=== PATIENT | female | born 1990 | race Caucasian/White ===

== ENCOUNTER 2017-06-26 10:03 | Emergency (ER) | payer MEDICAID, OTHER ==
[~2017-06-26] VITALS: Ht 165.1 cm; Wt 63.0 kg
[~2017-06-26 10:03] MED LIST: NAPR-260 PO; PREN-39 PO
[2017-06-26 10:08] VITALS: Ht 165.1 cm; Wt 63.0 kg
[2017-06-26] MEDS ORDERED: SOD CHLORIDE 0.9% 1,000 ML IV ONE (13:00)
[2017-06-26] MEDS ORDERED: CLINDAMYCIN 300 MG INJ IV ONE ×2 (13:00→13:30)
[2017-06-26] MEDS ORDERED: CLINDAMYCIN 600 MG/D5W (PMX) 50 ML IVPB SCH (13:30)
--- NOTE | 2017-06-26 13:41 | ERA ---
ER Documentation Chief Complaint Date/Time DATE: 06/26/17 TIME: 13:36 Chief Complaint FOOT FUNGUS AND LEG RASH WITH SWELLING HPI Patient presents with a chief complaint of rash. Denies any pruritus. States that she went to all of you and treated with terbinafine 250 mg 3 weeks ago. Symptoms not resolved. Became painful. Went to an urgent care clinic 2 weeks ago and was prescribed Bactrim and ketoconazole. Patient has completed treatment and the lesions have not resolved. Denies any fever, chills, rashes in other areas of the body, vaginal discharge, cough, shortness of breath, chest pain, discharge from site of rash. Patient has a difficult time walking secondary to pain. No recent travel. Vaccination status up-to-date. Patient states that she is otherwise well, has no other complaints and describes no other associated manifestations. ROS All systems reviewed and are negative except as per history of present illness. Medications Home Meds Active Scripts Clindamycin Hcl* (Clindamycin Hcl*) 300 Mg Capsule, 300 MG PO TID for 10 Days, CAP Prov:JESUS ENRIQUEZ PA-C 06/26/17 Naproxen* (Naprosyn*) 500 Mg Tablet, 500 MG PO BID Y for PAIN AND/OR INFLAMMATION, #30 TAB Prov:BENY RUBY PA-C 08/30/16 Reported Medications Vits W-Ca,Fe,Fa(<1MG) ( Vitamins) 1 Tab Tablet, PO DAILY 08/18/11 Allergies Allergies: Coded Allergies: No Known Allergy (Verified , 08/18/11) PER HEIDY MERRILL PMhx/Soc History of Surgery: No Anesthesia Reaction: No Hx Neurological Disorder: No Hx Respiratory Disorders: No Hx Cardiac Disorders: No Hx Psychiatric Problems: No Hx Miscellaneous Medical Probl: No Hx Alcohol Use: No Hx Substance Use: No Hx Tobacco Use: No Smoking Status: Never smoker Physical Exam Vitals Vital Signs Date Time Temp Pulse Resp B/P Pulse Ox O2 Delivery O2 Flow Rate FiO2 06/26/17 10:08 98.1 74 16 135/59 99 Physical Exam Const: Healthy-appearing. Well-nourished. Well-developed. No acute distress. Skin: Petechiae and palpable purpura on the lower extremities bilaterally near the ankles. Excoriated skin in a moccasin distribution bilaterally. Erythematous tender 2 cm bleeding area on the bottom of the left foot. Indurated 1 cm around the area. All rashes are confined to the lower extremities below the knees and includes the plantar surface of the feet. Ext: Swollen feet bilaterally. No pitting edema. Right foot more swollen. Head: Normocephalic. As noted in skin exam. Eyes: Non-injected; No scleral erythema, or discharge. EOMI and DANNA bilaterally. Ears: Normal External Ears, EACs clear, TM normal bilaterally without erythema. Nose: Normal nose without discharge, septal deviation, or sinus tenderness. Oral: No oral edema visualized. Mucous membranes moist and pink. Neck: No cervical lymphadenopathy, or masses. Trachea midline. Supple ~ No meningismus. Pulm: Good air movement in upper and lower respiratory tracts. No dyspnea, stridor, tripoding or drooling. Clear to auscultation bilaterally. Cardio: Regular rate and rhythm. No JVD grossly observed. Radial and posterior tibial pulses 2+ bilaterally. No cyanosis. Capillary refill less than 2 seconds. Abd: Soft, non tender, non distended. No guarding. Normal bowel sounds. MS: Normal motor strength, normal tone with gross examination. Back: No midline or flank tenderness. Neur: Neurovascularly intact bilaterally. Awake, alert and oriented x3. Result Diagram: 06/26/17 1300 06/26/17 1300 Results 24 hrs Laboratory Tests Test 06/26/17 13:00 White Blood Count 6.310^3/ul Red Blood Count 4.2710^6/ul Hemoglobin 13.0g/dl Hematocrit 38.6% Mean Corpuscular Volume 90.4fl Mean Corpuscular Hemoglobin 30.4pg Mean Corpuscular Hemoglobin Concent 33.7g/dl Red Cell Distribution Width 12.1% Platelet Count 95807^3/UL Mean Platelet Volume 8.7fl Neutrophils % 54.2% Lymphocytes % 35.9% Monocytes % 5.9% Eosinophils % 3.6% Basophils % 0.2% Nucleated Red Blood Cells % 0.0/100WBC Neutrophils # (Manual) 3.410^3/ul Lymphocytes # 2.310^3/ul Monocytes # 0.410^3/ul Eosinophils # 0.210^3/ul Basophils # 0.010^3/ul Nucleated Red Blood Cells # 0.010^3/ul Urine Color YELLOW Urine Clarity SLIGHTLY CLOUDY Urine pH 8.0 Urine Specific [place] 1.013 Urine Ketones NEGATIVEmg/dL Urine Nitrite NEGATIVEmg/dL Urine Bilirubin NEGATIVEmg/dL Urine Urobilinogen NEGATIVEmg/dL Urine Leukocyte Esterase NEGATIVELeu/ul Urine Microscopic RBC 1/HPF Urine Microscopic WBC 1/HPF Urine Squamous Epithelial Cells MODERATE/HPF Urine Bacteria FEW/HPF Urine Mucus FEW/HPF Urine Hemoglobin 2+mg/dL Urine Glucose NEGATIVEmg/dL Urine Total Protein NEGATIVEmg/dl Sodium Level 143mmol/L Potassium Level 3.6mmol/L Chloride Level 100mmol/L Carbon Dioxide Level 29mmol/L Anion Gap 18 Blood Urea Nitrogen 8mg/dl Creatinine 0.57mg/dl Glucose Level 85mg/dl Calcium Level 9.2mg/dl Total Bilirubin 0.1mg/dl Direct Bilirubin 0.00mg/dl Indirect Bilirubin 0.1mg/dl Aspartate Amino Transf (AST/SGOT) 98IU/L Alanine Aminotransferase (ALT/SGPT) 95IU/L Alkaline Phosphatase 99IU/L Total Protein 8.4g/dl Albumin 4.4g/dl Globulin 4.00g/dl Albumin/Globulin Ratio 1.10 Monoscreen Positive Current Medications Medications (Trade) Dose Ordered Sig/Chucky Route PRN Reason Start Time Stop Time Status Last Admin Dose Admin Sodium Chloride (NS) 1,000 ml @ 1,000 mls/hr Q1H ONCE IV 06/26/17 13:00 06/26/17 13:59 DC 06/26/17 13:16 Clindamycin Phosphate (Cleocin) 600 mg ONCE ONCE IV 06/26/17 13:00 06/26/17 13:05 DC Clindamycin Phosphate 600 mg 600 mg ONCE ONCE IV 06/26/17 13:30 06/26/17 13:31 Cancel Clindamycin HCl/ Dextrose (Cleocin 600 Mg/ D5W (Pmx)) 50 ml @ 50 mls/hr ONCE IVPB 06/26/17 13:30 06/26/17 14:29 DC 06/26/17 13:52 Procedures/MDM This is an otherwise healthy 27-year-old female presenting with rash on bilateral ankle and feet 3 weeks as described in history and physical examination. I presented the case to my attending Dr. Dawkins, who evaluated the patient and has suggested IV clindamycin 600 mg IV, CBC, CMP, urinalysis, urine , liver function panel, Monospot test. Labs were obtained and resulted in the following: Urine negative Total protein 8.4. AST 95, ALT 98. Monospot positive I reviewed the case with my current attending Dr. Cao, who also evaluated the patient herself, and has agreed to the previous plan of continuing clindamycin p.o. outpatient, giving a mononucleosis precautions, and giving referral to dermatology to be evaluated within the next 2-3 days. Most likely diagnosis is mononucleosis vs rash of unknown etiology. I have little suspicion for fungal infection, meningococcemia, measles, drug reaction, toxic shock, vasculitis, Kawasaki's, among others. I have spoke with the patient regarding their condition and future management. They have verbally responded that they understand their status and treatment plan. The patients vitals are stable, and their current condition is appropriate for discharge. The patient will be given discharge instructions with return precautions. Departure Diagnosis: Primary Impression: Mononucleosis Condition: Stable Additional Instructions: Follow-up with dermatology in the next 1-3 days for more thorough evaluation. Return the the emergency department immediately if symptoms worsen or change. If you have any questions regarding medications, ask your pharmacist or us before you leave. If any adverse reactions occur while taking your medications, discontinue the treatment and return to the emergency department immediately. Take your medications as directed, and complete the entire course of treatment. JESUS ENRIQUEZ PA-C Jun 26, 2017 13:41
[2017-06-26 13:48] LABS: BASOPHILS % 0.2 % (0.0-2.0); EOSINOPHILS # 0.2 10^3/ul (0.0-0.5); EOSINOPHILS % 3.6 % (0.0-7.0); HEMATOCRIT 38.6 % (37.0-47.0); LYMPHOCYTES # 2.3 10^3/ul (0.8-2.9); LYMPHOCYTES % 35.9 % (15.0-51.0); MEAN CORPUSCULAR HEMOGLOBIN 30.4 pg (29.0-33.0); MEAN CORPUSCULAR HGB CONC 33.7 g/dl (32.0-37.0); MEAN CORPUSCULAR VOLUME 90.4 fl (82.0-101.0); MEAN PLATELET VOLUME 8.7 fl (7.4-10.4); MONOCYTE # 0.4 10^3/ul (0.3-0.9); MONOCYTES % 5.9 % (0.0-11.0); NEUTROPHILS % 54.2 % (39.0-77.0); PLATELET COUNT 330 10^3/UL (140-415); RED BLOOD COUNT 4.27 10^6/ul (4.20-5.40); RED CELL DISTRIBUTION WIDTH 12.1 % (11.5-14.5); WHITE BLOOD COUNT 6.3 10^3/ul (4.8-10.8)
[2017-06-26 13:58] LABS: UR BACTERIA FEW /HPF (NONE SEEN); UR RBC 1 /HPF (0-5)
[2017-06-26 13:59] LABS: UR MUCUS FEW /HPF (NONE SEEN); UR SQUAMOUS EPITHELIAL CELL MODERATE /HPF (FEW)
[2017-06-26 14:08] LABS: ADD UMIC YES; ALBUMIN 4.4 g/dl (3.3-4.9); ALBUMIN/GLOBULIN RATIO 1.1; BILIRUBIN,INDIRECT 0.1 mg/dl (0-1.1); BILIRUBIN,TOTAL 0.1 mg/dl (0.2-1.3); CALCIUM 9.2 mg/dl (8.4-10.2); CREATININE 0.57 mg/dl (0.44-1.00); POTASSIUM 3.6 mmol/L (3.5-5.1); TOTAL PROTEIN 8.4 g/dl (6.1-8.1); UR ASCORBIC ACID NEGATIVE (NEGATIVE); UR BILIRUBIN (Dip) NEGATIVE (NEGATIVE); UR BLOOD (Dip) 2+ mg/dL (NEGATIVE); UR CLARITY SLIGHTLY CLOUDY (CLEAR); UR COLOR YELLOW (YELLOW); UR GLUCOSE (Dip) NEGATIVE (NEGATIVE); UR KETONES (Dip) NEGATIVE (NEGATIVE); UR LEUKOCYTE ESTERASE (Dip) NEGATIVE Leu/ul (NEGATIVE); UR NITRITE (Dip) NEGATIVE (NEGATIVE); UR SPECIFIC GRAVITY (Dip) 1.013 (1.003-1.030); UR TOTAL PROTEIN (Dip) NEGATIVE (NEGATIVE); UR UROBILINOGEN (Dip) NEGATIVE (NEGATIVE)
[2017-06-26] MEDS ORDERED: CLIN-73 PO (16:16)
== END 2017-06-26 17:11 | disposition home or self-care (01) ==
LOC: FTE 10:03
DX: B27.90 Infectious mononucleosis, unspecified without complication (principal)
CPT/HCPCS: 80053; 80076; 81001; 85025; 86308; 87591; 96374; J7030; Z7502; Z7610